=== PATIENT | female | born 1965 | race Caucasian/White ===

== ENCOUNTER 2016-03-28 19:31 | Emergency (ER) | payer MEDICAID ==
[~2016-03-28] VITALS: Ht 152.4 cm; Wt 63.5 kg
[2016-03-28 19:34] VITALS: BP 139/78
--- NOTE | 2016-03-28 19:50 | NUR ---
51Y F BIB FAMILY C/O HEADACHE X 5 DAYS AND FEVER X 4 DAYS . PT STATES DENIES N/V/D; SKIN IS PINK/WARM/DRY; AAOX4 WITH EVEN AND STEADY GAIT; LUNGS CLEAR BL; HR EVEN AND REGULAR; PT DENIES ANY FEVER, CP, SOB, OR COUGH AT THIS TIME; PATIENT STATES PAIN OF 6/10 AT THIS TIME; VSS; PATIENT POSITIONED FOR COMFORT; HOB ELEVATED; BEDRAILS UP X2; BED DOWN. ER MD MADE AWARE OF PT STATUS.
--- NOTE | 2016-03-28 20:10 | NUR ---
Patient being evaluated by physician DR DON at bedside.
[2016-03-28] MEDS ORDERED: KETOROLAC 30 MG/ML VIAL IVP ONE (20:15)
--- NOTE | 2016-03-28 21:11 | NUR ---
LUMBAR PUNCTURE COMPLETED AT 2110
--- NOTE | 2016-03-28 21:22 | NUR ---
PAU FROM LAB PICKED UP SAMPLE OF CSF
[2016-03-28] MEDS ORDERED: PROMETH/CODEINE 6.25-10MG/5ML 5 ML UDC PO ONE (22:40)
--- NOTE | 2016-03-28 22:50 | NUR ---
PT WENT TO XRAY ACCOMPANIED BY RIG MECHANIC VIA WC
--- NOTE | 2016-03-28 23:17 | NUR ---
PT RETURN FROM XRAY
[2016-03-28 23:41] VITALS: BP 118/76
--- NOTE | 2016-03-28 23:41 | NUR ---
IV removed, catheter intact and site benign. Applied folded 4x4 gauze and tape to stop bleeding.
--- NOTE | 2016-03-28 23:41 | NUR ---
Patient discharged with v/s stable. Written and verbal after care instructions given and explained. Patient alert, oriented and verbalized understanding of instructions. Ambulatory with steady gait. All questions addressed prior to discharge. ID band removed. Patient advised to follow up with PMD. Rx of PHENERGAN WITH CODEINE AND MOTRIN 600MG given. Patient educated on indication of medication including possible reaction and side effects. Opportunity to ask questions provided and answered.
== END 2016-03-28 23:41 | disposition home or self-care (01) ==
LOC: MED 19:31
DX: B34.9 Viral infection, unspecified (principal); I10 Essential (primary) hypertension
CPT/HCPCS: 36415; 62270; 71020; 80048; 82948; 84157; 85025; 96374; 99285; J1885